=== PATIENT | female | born 1940 | race Caucasian/White ===

== ENCOUNTER 2016-07-05 12:24 | Emergency (ER) | payer MEDICARE, OTHER ==
[~2016-07-05] VITALS: Ht 157.5 cm; Wt 45.0 kg
[~2016-07-05 12:24] MED LIST: 1-ME1LIQ PO; ASPI325T PO; ATOR10TA PO; AUGM875T PO; COLA100C PO; DONE5TAB14 PO; FLUO10TA PO; IBUP-232 PO; KONS520C PO; MEMA28CA PO; OMEP40CA2 PO; SARA10TA PO; TRAZ50TA4 PO
[2016-07-05 12:35] VITALS: BP 201/84; PULSE 66; RESP 18; O2SAT 95
--- NOTE | 2016-07-05 12:49 | PD ---
HPI Chief Complaint: Altered Mental Status Time Seen by Provider: 12:45 Travel History International Travel<30 days: No Contact w/Intl Traveler<30days: No Traveled to known affect area: No History of Present Illness HPI 75-year-old female that presents to the ED for evaluation of Solomon joseph. Patient does have a history of dementia and apparently today she had an episode where she called the police because there was a stranger in her house. Apparently the stranger was her . Patient apparently got a little bit aggressive towards police that she was Carbajal acted for her own safety. She seems to be alerted to self and somewhat to place but she does appear to be somewhat demented. She cannot really give me much medical history. She denies any complaints at this time. She denies any urinary issues. She denies any head injury. No chest pain or shortness of breath. No nausea or vomiting. She has never been here before for psychiatric illness. She has no allergies to meds. She did not bring any list with medications so unclear she's taking any medications. She does appear to be somewhat altered and demented. At this time she's not aggressive. PFSH Past Medical History Hx Anticoagulant Therapy: Yes Alzheimer's Disease: Yes Arthritis: Yes Anxiety: Yes Heart Rhythm Problems: No Cardiac Catheterization: No High Cholesterol: Yes Congestive Heart Failure: No Dementia: Yes Diminished Hearing: No GERD: Yes Heparin Induced Thrombocytopen: No Hypertension: Yes Immunizations Current: No ?: Not Menopausal: Yes Past Surgical History Coronary Artery Bypass Graft: No Tonsillectomy: Yes Social History Alcohol Use: No Tobacco Use: No (smoked cigs at age 17 only) Substance Use: No Allergies-Medications (Allergen,Severity, Reaction): Coded Allergies: No Known Allergies (Unverified , 07/05/16) Patient and her state she is not allergic to aspirin. Reported Meds & Prescriptions Reported Meds & Active Scripts Active Motrin (Ibuprofen) 600 Mg Tab 600 Mg PO TID Augmentin 875 mg Tab (Amoxicillin & Pot Clavulanate 875 mg Tab) 875 Mg Tab 875 Mg PO BID 7 Days Reported Sarafem 10 mg (Fluoxetine 10 mg) 10 Mg Tab 1 Tab PO HS Trazodone Hcl (Trazodone HCl) 50 Mg Tab 50 Mg PO HS Colace (Docusate Sodium) 100 Mg Cap 100 Mg PO DAILY Atorvastatin 10 mg (Atorvastatin Calcium) 10 Mg Tab 10 Mg PO HS 30 Days Atorvastatin 10 mg (Atorvastatin Calcium) 10 Mg Tab 10 Mg PO DAILY Aspirin 325 mg (Aspirin) 325 Mg Tab 325 Mg PO DAILY Metamucil (Psyllium Hydrophilic Mucilloid) 0.52 Gm Cap 1 Cap PO TID PRN Fluoxetine (Fluoxetine HCl) 10 Mg Tab 10 Mg PO DAILY Donepezil 5 mg 5 Mg Tab 5 Mg PO DAILY Omeprazole 40 mg (Omeprazole) 40 Mg Cap 1 Cap PO DAILY Amlodipine Besylate 10 mg (Amlodipine Besylate) 10 Mg Tab 1 Tab PO DAILY Namenda XR (Memantine HCl) 28 Mg Caper 28 Mg PO DAILY Administer without regard to meals. Extended release capsules may be swallowed whole or entire contents of capsule may be sprinkled on applesauce and swallowed immediately; do not chew, crush, or divide. Review of Systems Except as stated in HPI: all other systems reviewed are Neg Physical Exam Narrative GENERAL: SKIN: Warm and dry. HEAD: Atraumatic. Normocephalic. EYES: Pupils equal and round. No scleral icterus. No injection or drainage. ENT: No nasal bleeding or discharge. Mucous membranes pink and moist. Tongue is midline. No uvula deviation. NECK: Trachea midline. No JVD. CARDIOVASCULAR: Regular rate and rhythm. No murmurs, S3, S4. RESPIRATORY: No accessory muscle use. Clear to auscultation. Breath sounds equal bilaterally. GASTROINTESTINAL: Abdomen soft, non-tender, nondistended. Hepatic and splenic margins not palpable. MUSCULOSKELETAL: Extremities without clubbing, cyanosis, or edema. No obvious deformities. Full range of motion of the upper and lower extremities bilaterally. 2+ pulses bilaterally. NEUROLOGICAL: Awake and alert and oriented x 2. No obvious cranial nerve deficits. Motor grossly within normal limits. Five out of 5 muscle strength in the arms and legs. Normal speech. PSYCHIATRIC: demented mood and affect; insight and judgment questionable. Data Data Last Documented VS Vital Signs Date Time Temp Pulse Resp B/P Pulse Ox O2 Delivery O2 Flow Rate FiO2 07/05/16 12:35 66 18 201/84 95 Orders Complete Blood Count With Diff (07/05/16 12:33) Comprehensive Metabolic Panel (07/05/16 12:33) Urinalysis - C+S If Indicated (07/05/16 12:33) Drug Screen, Random Urine (07/05/16 12:33) Alcohol (Ethanol) (07/05/16 12:33) Psych Screen (07/05/16 12:33) Ct Brain W/O Iv Contrast(Rout) (07/05/16 ) Electrocardiogram (07/05/16 12:45) Troponin I (07/05/16 12:42) Labs Laboratory Tests Test 07/05/16 07/05/16 12:42 12:47 White Blood Count 6.7 TH/MM3 Red Blood Count 4.16 MIL/MM3 Hemoglobin 13.4 GM/DL Hematocrit 38.3 % Mean Corpuscular Volume 91.9 FL Mean Corpuscular Hemoglobin 32.2 PG Mean Corpuscular Hemoglobin 35.0 % Concent Red Cell Distribution Width 14.1 % Platelet Count 332 TH/MM3 Mean Platelet Volume 6.8 FL Neutrophils (%) (Auto) 69.4 % Lymphocytes (%) (Auto) 20.6 % Monocytes (%) (Auto) 8.4 % Eosinophils (%) (Auto) 0.6 % Basophils (%) (Auto) 1.0 % Neutrophils # (Auto) 4.6 TH/MM3 Lymphocytes # (Auto) 1.4 TH/MM3 Monocytes # (Auto) 0.6 TH/MM3 Eosinophils # (Auto) 0.0 TH/MM3 Basophils # (Auto) 0.1 TH/MM3 CBC Comment DIFF FINAL Differential Comment Sodium Level 141 MEQ/L Potassium Level 3.7 MEQ/L Chloride Level 104 MEQ/L Carbon Dioxide Level 29.3 MEQ/L Anion Gap 8 MEQ/L Blood Urea Nitrogen 10 MG/DL Creatinine 0.92 MG/DL Estimat Glomerular Filtration 60 ML/MIN Rate Random Glucose 104 MG/DL Calcium Level 9.1 MG/DL Total Bilirubin 0.2 MG/DL Aspartate Amino Transf 12 U/L (AST/SGOT) Alanine Aminotransferase 18 U/L (ALT/SGPT) Alkaline Phosphatase 95 U/L Troponin I LESS THAN 0.02 NG/ML Total Protein 7.4 GM/DL Albumin 4.0 GM/DL Ethyl Alcohol Level LESS THAN 3 MG/DL Urine Color LIGHT-YELLOW Urine Turbidity CLEAR Urine pH 6.0 Urine Specific [place] 1.007 Urine Protein NEG mg/dL Urine Glucose (UA) NEG mg/dL Urine Ketones NEG mg/dL Urine Occult Blood SMALL Urine Nitrite NEG Urine Bilirubin NEG Urine Urobilinogen LESS THAN 2.0 MG/DL Urine Leukocyte Esterase NEG Urine RBC 3 /hpf Urine WBC 1 /hpf Urine Squamous Epithelial <1 /hpf Cells Urine Mucus FEW /lpf Microscopic Urinalysis Comment CULT NOT INDICATED Urine Opiates Screen NEG Urine Barbiturates Screen NEG Urine Amphetamines Screen NEG Urine Benzodiazepines Screen NEG Urine Cocaine Screen NEG Urine Cannabinoids Screen NEG MDM Medical Decision Making Medical Screen Exam Complete: Yes Emergency Medical Condition: Yes Medical Record Reviewed: Yes Interpretation(s) CBC & BMP Diagram 07/05/16 12:42 UA negative troponin negative CT of the head was negative. Differential Diagnosis Dementia versus altered mental status versus UTI versus agitation versus mood disorder versus hallucination Narrative Course 75-year-old female that presents to the ED for evaluation of Carbajal act. Patient was properly examined and was found to have signs and symptoms consistent with appears to be likely altered mental status secondary to dementia. Labs and imaging ordered. Labs and imaging showed no sign of acute disease. More specifically no sign of cause for the worsening agitation. At this time there is no sign of acute medical distress. This appears to be dementia with agitation. Patient is a Carbajal act. Patient was medically cleared. Okay to be seen by psych. Mental health screening was discussed with the patient. Diagnosis Primary Impression: Dementia Qualified Code: F03.91 - Dementia with behavioral disturbance, unspecified dementia type Garrett John Jul 05, 2016 12:49 Garrett John Jul 05, 2016 12:49
[2016-07-05 12:58] LABS: AUTOMATED NEUTROPHIL # 4.6 TH/MM3 (1.8-7.7); BASOPHIL # 0.1 TH/MM3 (0-0.2); EOSINOPHIL % 0.6 % (0.0-4.0); HEMATOCRIT 38.3 % (35.0-46.0); HEMO FLAGS DIFF FINAL; LYMPH % 20.6 % (9.0-44.0); LYMPHOCYTE # 1.4 TH/MM3 (1.0-4.8); MEAN CELL VOLUME 91.9 FL (80.0-100.0); MEAN CORPUSCULAR HEMOGLOBIN 32.2 PG (27.0-34.0); MONO % 8.4 % (0.0-8.0); NEUT % 69.4 % (16.0-70.0); PLATELET COUNT 332 TH/MM3 (150-450); RED BLOOD COUNT 4.16 MIL/MM3 (4.00-5.30); RED CELL DISTRIBUTION WIDTH 14.1 % (11.6-17.2); WHITE BLOOD COUNT 6.7 TH/MM3 (4.0-11.0)
[2016-07-05 13:11] LABS: BLOOD, URINE SMALL (NEG); COMMENT (UR) CULT NOT INDICATED; CULTURE IF INDICATED CULT NOT INDICATED; GLUCOSE,URINE NEG (NEG); KETONE, URINE NEG (NEG); MUCUS URINE FEW /lpf (OCC); NITRITE,URINE NEG (NEG); SQUAMOUS EPITHELIAL CELL URINE <1 /hpf (0-5); URINE COLOR LIGHT-YELLOW (YELLW/STRAW)
[2016-07-05 13:11] LABS: ANION GAP 8 MEQ/L (5-15); AST (GOT) 12 U/L (15-37); BICARBONATE 29.3 MEQ/L (21.0-32.0); BLOOD UREA NITROGEN 10 MG/DL (7-18); CHLORIDE 104 MEQ/L (98-107); GLOMERULAR FILTRATION RATE 60 ML/MIN (>89); POTASSIUM 3.7 MEQ/L (3.5-5.1); SODIUM (NA) 141 MEQ/L (136-145)
[2016-07-05 13:15] LABS: AMPHETAMINE, URINE NEG (NEG); BARBITURATES, URINE NEG (NEG); COCAINE, URINE NEG (NEG)
[2016-07-05 13:16] LABS: ALKALINE PHOSPHATASE 95 U/L (45-117); ALT (GPT) 18 U/L (10-53); TOTAL BILIRUBIN ADULT 0.2 MG/DL (0.2-1.0)
--- NOTE | 2016-07-05 13:22 | RADRPT ---
EXAM DATE/TIME: 07/05/2016 12:54 [facility] COMPARISON: CT BRAIN W/O CONTRAST, December 11, 2015, 19:13. INDICATIONS : Altered mental status. RADIATION DOSE: 56.35 CTDIvol (mGy) MEDICAL HISTORY : Cardiovascular disease. Cerebrovascular disease. Hypertension. SURGICAL HISTORY : Hysterectomy. Diabetes. ENCOUNTER: Initial ACUITY: 1 day PAIN SCALE: 0/10 LOCATION: cranial TECHNIQUE: Multiple contiguous axial images were obtained of the head. Using automated exposure control and adj ustment of the mA and/or kV according to patient size, radiation dose was kept as low as reasonably a chievable to obtain optimal diagnostic quality images. FINDINGS: CEREBRUM: The ventricles are normal for age. Chronic bilateral cortical atrophy and chronic stable bilateral wh ite matter changes. No evidence of midline shift, mass lesion, hemorrhage or acute infarction. No e xtra-axial fluid collections are seen. POSTERIOR FOSSA: The cerebellum and brainstem are intact. The 4th ventricle is midline. The cerebellopontine angle i s unremarkable. EXTRACRANIAL: The visualized portion of the orbits is intact. SKULL: The calvaria is intact. No evidence of skull fracture. CONCLUSION: 1. No focal or acute intracranial hemorrhage. 2. Stable CT brain compared to the prior study. Gregg Goldman MD on July 05, 2016 at 13:20 Board Certified Radiologist. This report was verified electronically.
[2016-07-05] MEDS ORDERED: LORazepam 0.5 MG TAB PO ONE (14:30)
[2016-07-05 15:00] VITALS: BP 197/84; PULSE 78; RESP 18; TEMP 99.2; O2SAT 97
[2016-07-05] MEDS ORDERED: LISINOPRIL 5 MG TAB PO ONE (15:15)
[2016-07-05] MEDS ORDERED: MIDO200C (15:48)
[2016-07-05] MEDS ORDERED: DONE5TAB7 PO (15:48)
[2016-07-05] MEDS ORDERED: OMEP10CA PO (15:48)
[2016-07-05] MEDS ORDERED: FD GUARD (15:48)
[2016-07-05] MEDS ORDERED: FLUO10CA5 PO (15:48)
[2016-07-05] MEDS ORDERED: ASPI325T33 PO (15:48)
[2016-07-05] MEDS ORDERED: ONDA1TAB16 (15:48)
[2016-07-05] MEDS ORDERED: ATOR10TA15 PO (15:48)
[2016-07-05] MEDS ORDERED: IBUP-232 PO (15:48)
[2016-07-05] MEDS ORDERED: COLA100C3 PO (15:48)
[2016-07-05] MEDS ORDERED: MEMA28CA PO (15:48)
[2016-07-05] MEDS ORDERED: AMLO10TA2 PO (15:48)
[2016-07-05 16:44] VITALS: BP 178/78; PULSE 70; RESP 16; O2SAT 99
[2016-07-05 18:44] VITALS: BP 123/58; PULSE 68; RESP 16; O2SAT 99
[2016-07-05] MEDS ORDERED: QUEtiapine FUMARATE 25 MG TAB PO PRN (21:00)
[2016-07-05 22:26] VITALS: BP 131/60; PULSE 72; RESP 18; TEMP 97.4; O2SAT 99
[2016-07-06] MEDS ORDERED: LORazepam 1 MG TAB PO ONE (01:15)
[2016-07-06 02:14] VITALS: BP 138/64; PULSE 97; RESP 17; TEMP 97.1; O2SAT 100
[2016-07-06 06:21] VITALS: BP 160/73; PULSE 98; RESP 18; O2SAT 100
[2016-07-06] MEDS ORDERED: FLUoxetine HCL 10 MG CAP PO SCH (09:00)
[2016-07-06] MEDS ORDERED: ATORVASTATIN 10 MG TAB PO SCH (09:00)
[2016-07-06] MEDS ORDERED: PANTOPRAZOLE SOD 20 MG DELAYED RELEASE TAB PO SCH (09:00)
[2016-07-06] MEDS ORDERED: MEMANTINE 28 MG PO SCH (09:00)
[2016-07-06] MEDS ORDERED: DONEPEZIL HCL 5 MG TAB PO SCH (09:00)
[2016-07-06] MEDS ORDERED: ASPIRIN EC 325 MG TABEC PO SCH (09:00)
[2016-07-06 10:03] VITALS: BP 128/62; PULSE 78; RESP 18; O2SAT 97
[2016-07-06 13:45] VITALS: BP 128/62; PULSE 78; RESP 18; O2SAT 97
--- NOTE | 2016-07-06 13:59 | PD.CONS ---
Provisional Diagnosis Admission Date 07/05/16 [place]. Dementia with behavioral disturbances FO 3.91 History of Present Illness Service Psychiatry Consult Requested By EDMD Reason for Consult Carbajal act Primary Care Physician Joshua Chin MD HPI Patient is a [age] white female comes her under Carbajal act by the [place] [employer] dated 07/05/16 at 11:55 AM stating when he has been having dementia episodes over the past week today been on a call the police because of a strange man who was inside her house the man she called about Rudy is her of 40 years. Chelita's dementia episodes have been getting worse she told her cousin Patricia that she would harm herself if Rudy did not leave Chelita told me she would end her life if Rudy did not leave Chelita seeing Dr. Patric Truong [phone] for the dementia. It appears there is an appointment with Dr. Truong tomorrow. Patient seen and screened in the ED urine toxicology negative blood alcohol level negative At the present time patient sitting quietly in her room on J pod nurse Lam present throughout session. Patient is a thin slight slender white female appears her stated age she is calm cooperative and pleasant with us though she is diffusely disoriented to place time and situation though she did know the new president was Ashley. She acknowledges somewhat obtusely her memory issues. She is somewhat vague about her memory of her though she knows his name that she does wish to go home with him. She does denies any past psychiatric contact. Denies any alcohol or drugs. Denies any suicidality homicidality voices or visions. Staff states the patient's has called various times showing his support for his is desired to have her come home today suit can take her to visit Dr. Truong tomorrow. At the present time I feel patient does not meet acre criteria will lift Carbajal act. She does show signs of dementia. She does have an appointment tomorrow with a psychiatrist to follow up with this. It appears does have appropriate support at home with her . Thus I will lift the Carbajal act allow her to be discharged her . No Rx by me. To follow-up tomorrow with Dr. Truong Review of Systems Except as stated in HPI: all other systems reviewed are Neg Past Family Social History Coded Allergies: No Known Allergies (Unverified , 07/05/16) Patient and her state she is not allergic to aspirin. Past Medical History Patient medically cleared ED Reported Medications Docusate Sodium (Colace)100 Mg [id number] Mg PO DAILY #60 CAP Ref 0 07/05/16 Fluoxetine 10 Mg Cap10 Mg PO DAILY #30 CAP Ref 0 07/05/16 [Fd Guard] No Conflict Check Hs 07/05/[address] (Aspirin EC)325 Mg [id number] Mg PO DAILY Ref 0 07/05/16 Ondansetron 4 Mg Tab Bid 07/05/16 Ibuprofen 600 Mg [id number] Mg PO BID Ref 0 07/05/16 Ibuprofen (Midol)200 Mg Cap1 Tab BID 07/05/16 Omeprazole 10 Mg Cap10 Mg PO BID #30 CAP Ref 0 07/05/16 Atorvastatin 10 Mg Tab10 Mg PO DAILY #30 TAB Ref 0 07/05/16 Amlodipine 10 Mg Tab10 Mg PO BID #30 TAB Ref 0 07/05/16 Memantine Er (Namenda Xr)28 Mg Caper28 Mg PO DAILY #30 CAP Ref 0 07/05/16 Donepezil 5 Mg Tab5 Mg PO DAILY #30 TAB Ref 0 07/05/16 Discontinued Reported Medications Fluoxetine 10 mg (Sarafem 10 mg)10 Mg Tab1 Tab PO HS 03/27/16 Trazodone Hcl 50 Mg Tab50 Mg PO HS 03/27/16 Docusate Sodium (Colace)100 Mg Gng130 Mg PO DAILY 12/11/15 Atorvastatin 10 mg 10 Mg Tab10 Mg PO HS 30 Days 12/11/15 Atorvastatin 10 mg 10 Mg Tab10 Mg PO DAILY 12/11/15 Aspirin (Aspirin 325 mg)325 Mg Uji412 Mg PO DAILY 12/11/15 Psyllium (Metamucil)0.52 Gm Cap1 Cap PO TID PRN (CONSTIPATION) 12/11/15 Fluoxetine 10 Mg Tab10 Mg PO DAILY 12/11/15 Donepezil 5 mg 5 Mg Tab5 Mg PO DAILY 10/16/15 [id number] M1 40 Mg Cap1 Cap PO DAILY 10/16/15 1-Methyl 2-Pyrrolidone (Bulk) (1-Methyl 2-Pyrrolidinone)10 Mg Tab1 Tab PO DAILY 01/11/15 Memantine HCl (Namenda XR)28 Mg Caper28 Mg PO DAILY Administer without regard to meals. Extended release capsules may be swallowed whole or entire contents of capsule may be sprinkled on applesauce and swallowed immediately; do not chew, crush, or divide. 01/11/15 Discontinued Scripts Ibuprofen (Motrin)600 Mg Utt067 Mg PO TID #30 TAB Prov:Juan C Gil MD 03/27/16 [id number] M1 875 Mg Usr549 Mg PO BID 7 Days Prov:Juan C Gil MD 03/27/16 Current Medications Medications (Trade) Dose Ordered Sig/Theodore Route Start Time Stop Time Status Last Admin (Norvasc) 10 mg DAILY PO 07/06/16 09:00 07/06/16 09:05 (Ecotrin Ec) 325 mg DAILY PO 07/06/16 09:00 07/06/16 09:05 (Lipitor) 10 mg DAILY PO 07/06/16 09:00 07/06/16 09:05 (Aricept) 5 mg DAILY PO 07/06/16 09:00 07/06/16 09:05 (PROzac) 10 mg DAILY PO 07/06/16 09:00 07/06/16 09:05 (Protonix) 20 mg DAILY PO 07/06/16 09:00 07/06/16 09:05 Patient Own Medication PT OWN MED: (Memant... DAILY PO 07/06/16 09:00 Hold (SEROquel) 25 mg BID PRN PO 07/05/16 21:00 07/05/16 20:49 Family History Patient lives with of 40 years, states they have no children. Social History Patient was the denies alcohol or drug use Patient's Strengths (min. 2) Patient verbal able [facility] has supportive family Physical Exam Patient seen screened in ED medically cleared exam reviewed and agreed with Vital Signs Vital Signs Date Time Temp Pulse Resp B/P Pulse Ox O2 Delivery O2 Flow Rate FiO2 07/06/16 10:03 78 18 128/62 97 Room Air 07/06/16 02:14 97.1 Mental Status Examination Allergic history disoriented thin slight slender white female clean and neat with fair eye contact cooperative Appearance Clean and neat Speech: Circumstantial, Tangential Orientation: Person Memory: Impaired (describe) Thought Process: Linear Thought Content: Unremarkable Hallucination Type: None (denies voices or visions) Attention and Concentration: Other (poor) Suicidal Ideation: No Previous Suicide Attempts: No Homicidal Ideation: No Previous Homicide Attempts: No Insight: Poor Judgement: Poor Affect: Other (good range and intensity) Mood: Euthymic (is somewhat restricted) Motor Activity: Normal gait Assessment & Plan Problem List: (1) Dementia with behavioral disturbance ICD Code: F03.91 Assessment & Plan Estimated LOS: days patient does not meet criteria under the Carbajal act. Will lift Carbajal act. Patient to be discharged her . To follow-up with Dr. Truong tomorrow. No Rx by me Discharge Planning See above Request HC Surrog/Guard Advoc?: No Miah Perales MD Jul 06, 2016 13:58
== END 2016-07-06 15:07 | disposition home or self-care (01) ==
LOC: NEPC 12:24 → NEPJ 07-06 15:07
DX: F03.91 Unspecified dementia, unspecified severity, with behavioral disturbance (principal); G30.9 Alzheimer's disease, unspecified; I10 Essential (primary) hypertension; E78.00 Pure hypercholesterolemia, unspecified
CPT/HCPCS: 70450; 80053; 80307; 80320; 81001; 84484; 85025

== ENCOUNTER 2016-10-08 21:46 | Inpatient (IN) | payer MEDICARE ==
[~2016-10-08] VITALS: Ht 162.6 cm; Wt 51.4 kg
[~2016-10-08 21:46] MED LIST changes: -1-ME1LIQ PO; +AMLO10TA2 PO; -ASPI325T PO; +ASPI325T33 PO; -ATOR10TA PO; +ATOR10TA15 PO; -AUGM875T PO; -COLA100C PO; +COLA100C3 PO; -DONE5TAB14 PO; +DONE5TAB7 PO; +FD GUARD; +FLUO10CA5 PO; -FLUO10TA PO; -KONS520C PO; +MIDO200C; +OMEP10CA PO; -OMEP40CA2 PO; +ONDA1TAB16; -SARA10TA PO; -TRAZ50TA4 PO
[2016-10-08 21:57] VITALS: BP 170/60; PULSE 78; RESP 18; TEMP 98.6; O2SAT 98
--- NOTE | 2016-10-08 22:04 | PD ---
HPI Chief Complaint: Altered Mental Status Time Seen by Provider: 21:51 Travel History International Travel<30 days: No Contact w/Intl Traveler<30days: No Traveled to known affect area: No History of Present Illness HPI This 76-year-old female is here because of dementia. She has a history of dementia. She generally lives at home with her . Her apparently drives a car and generally is in better shape than his . Over the last month however her has had a decline is being admitted to the hospital with some altered mental status and pneumonia. He was referred to the emergency department from his doctor's office. His has come with him. The 2 of them live alone together. They have children in other states. The charge nurse in the hospital has called DCF but they are unable to place the patient at this time. The patient has been in the emergency department with her . She has been quite confused area and she does not always recognize her . She has been wandering around and does not live with request that she stay in the room. She has been urinating a lot. She does not answer questions appropriately. She denies pain. It is not clear if She is taking any medication. SHe denies any pain PFSH Past Medical History Hx Anticoagulant Therapy: Yes Alzheimer's Disease: Yes Arthritis: Yes Anxiety: Yes Heart Rhythm Problems: No Cardiac Catheterization: No High Cholesterol: Yes Congestive Heart Failure: No Dementia: Yes Diminished Hearing: No GERD: Yes Heparin Induced Thrombocytopen: No Hypertension: Yes Immunizations Current: No Menopausal: Yes Past Surgical History Coronary Artery Bypass Graft: No Tonsillectomy: Yes Social History Alcohol Use: No Tobacco Use: No (smoked cigs at age 17 only) Substance Use: No Allergies-Medications (Allergen,Severity, Reaction): Coded Allergies: No Known Allergies (Unverified , 10/08/16) Patient and her state she is not allergic to aspirin. Reported Meds & Prescriptions Reported Meds & Active Scripts Active Reported Colace (Docusate Sodium) 100 Mg Cap 100 Mg PO DAILY Fluoxetine (Fluoxetine HCl) 10 Mg Cap 10 Mg PO DAILY [Fd Guard] HS Aspirin EC (Aspirin) 325 Mg Tabdr 325 Mg PO DAILY Ondansetron (Ondansetron HCl) 4 Mg Tab BID Ibuprofen 600 Mg Tab 600 Mg PO BID Midol (Ibuprofen) 200 Mg Cap 1 Tab BID Omeprazole 10 Mg Cap 10 Mg PO BID Atorvastatin (Atorvastatin Calcium) 10 Mg Tab 10 Mg PO DAILY Amlodipine (Amlodipine Besylate) 10 Mg Tab 10 Mg PO BID Namenda Xr (Memantine) 28 Mg Caper 28 Mg PO DAILY Donepezil 5 Mg Tab 5 Mg PO DAILY Review of Systems ROS Limitations: Clinical Condition, Altered Mental Status, Poor Historian Physical Exam Narrative GENERAL: Well-developed female SKIN: Focused skin assessment warm/dry. HEAD: Atraumatic. Normocephalic. EYES: Pupils equal and round. No scleral icterus. No injection or drainage. ENT: No nasal bleeding or discharge. Mucous membranes pink and moist. NECK: Trachea midline. No JVD. CARDIOVASCULAR: Regular rate and rhythm. No murmur appreciated. RESPIRATORY: No accessory muscle use. Clear to auscultation. Breath sounds equal bilaterally. GASTROINTESTINAL: Abdomen soft, non-tender, nondistended. Hepatic and splenic margins not palpable. MUSCULOSKELETAL: No obvious deformities. No clubbing. No cyanosis. No edema. NEUROLOGICAL: Awake and alert. No obvious cranial nerve deficits. Motor grossly within normal limits. She is quite confused. She is not oriented to time or place. She does not always recognize her GENERAL well-developed female. She is cooperative but quite confused. She has very poor short-term memory SKIN: Focused skin assessment warm/dry. HEAD: Atraumatic. Normocephalic. EYES: Pupils equal and round. No scleral icterus. No injection or drainage. ENT: No nasal bleeding or discharge. Mucous membranes pink and moist. NECK: Trachea midline. No JVD. CARDIOVASCULAR: Regular rate and rhythm. No murmur appreciated. RESPIRATORY: No accessory muscle use. Clear to auscultation. Breath sounds equal bilaterally. GASTROINTESTINAL: Abdomen soft, non-tender, nondistended. Hepatic and splenic margins not palpable. MUSCULOSKELETAL: No obvious deformities. No clubbing. No cyanosis. No edema. NEUROLOGICAL: Awake and alert. No obvious cranial nerve deficits. Motor grossly within normal limits. Normal speech. She is not oriented to time or place. She does not always denies her Data Data Last Documented VS Vital Signs Date Time Temp Pulse Resp B/P Pulse Ox O2 Delivery O2 Flow Rate FiO2 10/08/16 21:57 98.6 78 18 170/60 98 Orders Complete Blood Count With Diff (10/08/16 21:55) Comprehensive Metabolic Panel (10/08/16 21:55) Urinalysis - C+S If Indicated (10/08/16 21:55) Magnesium (Mg) (10/08/16 21:55) Thyroid Stimulating Hormone (10/08/16 21:55) Ct Brain W/O Iv Contrast(Rout) (10/08/16 21:55) Electrocardiogram (10/08/16 23:25) Potassium Chloride (Kcl) (10/08/16 23:30) Labs Laboratory Tests Test 10/08/16 22:40 White Blood Count 7.7 TH/MM3 Red Blood Count 4.34 MIL/MM3 Hemoglobin 13.1 GM/DL Hematocrit 38.6 % Mean Corpuscular Volume 88.8 FL Mean Corpuscular Hemoglobin 30.2 PG Mean Corpuscular Hemoglobin 34.0 % Concent Red Cell Distribution Width 12.3 % Platelet Count 324 TH/MM3 Mean Platelet Volume 7.0 FL Neutrophils (%) (Auto) 70.3 % Lymphocytes (%) (Auto) 18.6 % Monocytes (%) (Auto) 9.6 % Eosinophils (%) (Auto) 0.8 % Basophils (%) (Auto) 0.7 % Neutrophils # (Auto) 5.4 TH/MM3 Lymphocytes # (Auto) 1.4 TH/MM3 Monocytes # (Auto) 0.7 TH/MM3 Eosinophils # (Auto) 0.1 TH/MM3 Basophils # (Auto) 0.1 TH/MM3 CBC Comment DIFF FINAL Differential Comment Urine Color STRAW Urine Turbidity CLEAR Urine pH 6.0 Urine Specific [place] 1.002 Urine Protein NEG mg/dL Urine Glucose (UA) NEG mg/dL Urine Ketones NEG mg/dL Urine Occult Blood SMALL Urine Nitrite NEG Urine Bilirubin NEG Urine Leukocyte Esterase NEG Urine RBC 0-3 /hpf Urine WBC 0-2 /hpf Urine Squamous Epithelial 0-5 /hpf Cells Urine Bacteria NONE /hpf Microscopic Urinalysis Comment CULT NOT INDICATED Sodium Level 139 MEQ/L Potassium Level 2.6 MEQ/L Chloride Level 94 MEQ/L Carbon Dioxide Level 38.3 MEQ/L Anion Gap 7 MEQ/L Blood Urea Nitrogen 15 MG/DL Creatinine 0.79 MG/DL Estimat Glomerular Filtration 71 ML/MIN Rate Random Glucose 144 MG/DL Calcium Level 9.4 MG/DL Magnesium Level 2.5 MG/DL Total Bilirubin 0.4 MG/DL Aspartate Amino Transf 18 U/L (AST/SGOT) Alanine Aminotransferase 25 U/L (ALT/SGPT) Alkaline Phosphatase 92 U/L Total Protein 7.1 GM/DL Albumin 3.8 GM/DL Thyroid Stimulating Hormone 0.208 uIU/ML 3rd Gen [facility] Medical Decision Making Medical Screen Exam Complete: Yes Emergency Medical Condition: Yes Medical Record Reviewed: Yes Differential Diagnosis Differential includes dementia, UTI, electrolyte imbalance Narrative Course Her potassium is 2.6. Urine is negative for infection. CT scan shows age- related atrophy. Patient will need to be admitted. DCF has been called earlier in the day but was unable to find a place for the patient. He has no vertigo at this point. She was staying here with her but has been wandering needs closer supervision. EKG shows sinus rhythm with nonspecific ST- T wave changes Diagnosis Primary Impression: Dementia with behavioral disturbance Additional Impression: Hypokalemia Admitting Information Admitting Physician Requests: Observation Carter Moreno MD October 08, 2016 22:04
--- NOTE | 2016-10-08 22:48 | RADHPO ---
EXAM DATE/TIME: 10/08/2016 22:20 [facility] COMPARISON: CT BRAIN W/O CONTRAST, July 05, 2016, 12:54. INDICATIONS : Dementia with recent decline in mental status. RADIATION DOSE: 61.77 CTDIvol (mGy) MEDICAL HISTORY : Alzheimer's Hypertension. Diabetes. SURGICAL HISTORY : None. ENCOUNTER: Initial ACUITY: 1 day PAIN SCALE: 0/10 LOCATION: cranial TECHNIQUE: Multiple contiguous axial images were obtained of the head. Using automated exposure control and adj ustment of the mA and/or kV according to patient size, radiation dose was kept as low as reasonably a chievable to obtain optimal diagnostic quality images. FINDINGS: CEREBRUM: The ventricles and cortical sulci are mildly widened. There is low density in the cerebral white lupe er especially in the frontal regions. No evidence of midline shift, mass lesion, hemorrhage or acute infarction. No extra-axial fluid collections are seen. POSTERIOR FOSSA: The cerebellum and brainstem are intact. The 4th ventricle is midline. The cerebellopontine angle i s unremarkable. EXTRACRANIAL: The visualized portion of the orbits is intact. SKULL: The calvaria is intact. No evidence of skull fracture. CONCLUSION: 1. No acute abnormality seen. 2. Age-related atrophy. 3. Suspected small vessel ischemic change in the white matter. Miah Herndon MD on October 08, 2016 at 22:44 Board Certified Radiologist. This report was verified electronically.
[2016-10-08 22:54] LABS: AUTOMATED NEUTROPHIL # 5.4 TH/MM3 (1.8-7.7); BASOPHIL # 0.1 TH/MM3 (0-0.2); BASOPHIL % 0.7 % (0.0-2.0); EOSINOPHIL # 0.1 TH/MM3 (0-0.4); EOSINOPHIL % 0.8 % (0.0-4.0); HEMATOCRIT 38.6 % (35.0-46.0); HEMO FLAGS DIFF FINAL; LYMPH % 18.6 % (9.0-44.0); LYMPHOCYTE # 1.4 TH/MM3 (1.0-4.8); MEAN CELL VOLUME 88.8 FL (80.0-100.0); MEAN CORPUSCULAR HEMOGLOBIN 30.2 PG (27.0-34.0); MONO % 9.6 % (0.0-8.0); NEUT % 70.3 % (16.0-70.0); PLATELET COUNT 324 TH/MM3 (150-450); RED BLOOD COUNT 4.34 MIL/MM3 (4.00-5.30); RED CELL DISTRIBUTION WIDTH 12.3 % (11.6-17.2); WHITE BLOOD COUNT 7.7 TH/MM3 (4.0-11.0)
[2016-10-08 22:55] LABS: BLOOD, URINE SMALL (NEG); GLUCOSE,URINE NEG (NEG); KETONE, URINE NEG (NEG); NITRITE,URINE NEG (NEG)
[2016-10-08 23:03] LABS: URINE COLOR STRAW (YELLW/STRAW)
[2016-10-08 23:04] LABS: COMMENT (UR) CULT NOT INDICATED; CULTURE IF INDICATED CULT NOT INDICATED; RBC, URINE 0-3 /hpf (0-3); SQUAMOUS EPITHELIAL CELL URINE 0-5 /hpf (0-5); WBC, URINE 0-2 /hpf (0-5)
[2016-10-08 23:18] LABS: ALKALINE PHOSPHATASE 92 U/L (45-117); ALT (GPT) 25 U/L (10-53); ANION GAP 7 MEQ/L (5-15); AST (GOT) 18 U/L (15-37); BICARBONATE 38.3 MEQ/L (21.0-32.0); BLOOD UREA NITROGEN 15 MG/DL (7-18); CHLORIDE 94 MEQ/L (98-107); GLOMERULAR FILTRATION RATE 71 ML/MIN (>89); MAGNESIUM 2.5 MG/DL (1.5-2.5); SODIUM (NA) 139 MEQ/L (136-145); TOTAL BILIRUBIN ADULT 0.4 MG/DL (0.2-1.0)
[2016-10-08 23:20] LABS: POTASSIUM 2.6 MEQ/L (3.5-5.1)
[2016-10-08] MEDS ORDERED: POTASSIUM CHLORIDE 20 MEQ CONTROLLED RELEASE TAB PO ONE (23:30)
[2016-10-08] MEDS ORDERED: PRED20 PO ×2 (23:38)
[2016-10-09 00:18] VITALS: BP 147/60; PULSE 66; RESP 18; O2SAT 96
[2016-10-09 01:30] VITALS: BP 145/68; PULSE 74; RESP 18; TEMP 97.1; O2SAT 98
[2016-10-09] MEDS ORDERED: NALOXONE HCL 0.4 MG/ML AMP IV PRN (01:45)
[2016-10-09] MEDS ORDERED: ACETAMINOPHEN 325 MG TAB PO PRN (01:45)
[2016-10-09] MEDS ORDERED: SODIUM CHLORIDE 0.9% FLUSH 10 ML FLUSH IV FLUSH PRN (01:45)
[2016-10-09] MEDS ORDERED: POTASSIUM CHLORIDE 20 MEQ CONTROLLED RELEASE TAB PO ONE (01:45)
[2016-10-09] MEDS ORDERED: ONDANSETRON HCL 4 MG/2 ML VIAL IVP PRN (01:45)
[2016-10-09] MEDS ORDERED: SENNOSIDES 8.6 MG TAB PO PRN (01:45)
[2016-10-09] MEDS: SODIUM CHLORIDE 0.9% FLUSH 10 ML FLUSH IV FLUSH SCH ×2 (02:17→09:46)
[2016-10-09] MEDS: LORazepam 2 MG/ML VIAL IV PUSH PRN ×2 (02:55→09:47)
[2016-10-09 08:00] VITALS: BP 134/57; PULSE 69; RESP 17; TEMP 97.8; O2SAT 98
[2016-10-09] MEDS ORDERED: PT OWN: NAMENDA XR 28MG PO SCH (09:00)
[2016-10-09] MEDS: PANTOPRAZOLE SOD 20 MG DELAYED RELEASE TAB PO SCH (09:45)
[2016-10-09] MEDS: DOCUSATE SODIUM 100 MG CAP PO SCH (09:45)
[2016-10-09] MEDS: FLUoxetine HCL 10 MG CAP PO SCH (09:45)
[2016-10-09] MEDS: ASPIRIN EC 325 MG TABEC PO SCH (09:46)
[2016-10-09] MEDS: IBUPROFEN 600 MG TAB PO SCH ×2 (09:46→20:26)
[2016-10-09] MEDS: ATORVASTATIN 10 MG TAB PO SCH (09:46)
[2016-10-09] MEDS: HEPARIN SODIUM - SQ 10,000 UNITS/ML VIAL SQ SCH ×2 (09:46→20:25)
[2016-10-09] MEDS: DONEPEZIL HCL 5 MG TAB PO SCH (09:46)
--- NOTE | 2016-10-09 09:57 | MH ---
cc: KIP LOUISE MD DATE OF ADMISSION: 10/08/2016 CHIEF COMPLAINT Altered mental status. HISTORY OF PRESENT ILLNESS This is a 76-year female with medical history significant for dementia, arthritis, anxiety, hyperlipidemia, gastroesophageal reflux disease, She lives at home with , apparently and drives car and generally is in better shape then his . Over the last month however her has had a decline in being admitted to the hospital with some altered mental status and pneumonia and he was referred to emergency department from [facility] with his to come to see two of them living alone and had children in other states and charge nurse in the hospital called us here as they were unable to place the patient at this time. The patient has been in the emergency department with and she has been quite confused and does not always recognize her . She has been wandering around and does not live with request that she stay in the room. She has been urinating a lot. She does not answer questions appropriately. She denies any pain. When I asked the patient where she is, other than that nothing significant she is totally confused and demented. PAST MEDICAL HISTORY: As dictated above. PAST SURGICAL HISTORY: Significant for tonsillectomy. SOCIAL HISTORY Does not smoke, drink or take any drugs. Lives at home with both are confused now. ALLERGIES NO KNOWN DRUG ALLERGIES. FAMILY HISTORY Unable to obtain. MEDICATIONS: 1. Colace 100 mg p.o. daily. 2. 10 mg p.o. daily 3. Aspirin 325 mg p.o. daily 4. Zofran 4 mg p.o. b.i.d. 5. Ibuprofen 600mg p.o. b.i.d. 6. Omeprazole 10 mg twice a day 7. Lipitor 10 mg p.o. daily. 8. Amlodipine 10 mg b.i.d. 9. Namenda XR 28 mg p.o. daily 10. Donepezil 5 mg p.o. daily. REVIEW OF SYSTEMS All review of systems are unable to obtain because the patient has dementia and altered mental status. PHYSICAL EXAMINATION IN GENERAL: This is an 76-year female sitting on the bed not in acute distress. VITAL SIGNS: Temperature 97.8, heart rate 69, respirations 17, blood pressure 134/57. Oxygen saturation 98% room air. HEAD, EYES, EARS, NOSE, AND THROAT: Normocephalic, atraumatic. Extraocular muscles intact, pupils equal, round, reactive to light and accommodation. Oral mucosa moist. NECK: The neck is supple. No visible thyromegaly or mass. Trachea central. CARDIOVASCULAR SYSTEM: Regular rate and rhythm. LUNGS: Respirations clear to auscultation bilaterally. ABDOMEN: Soft, nontender. Bowel sounds. EXTREMITIES: No cyanosis, No clubbing, range of motion of all extremities. NEUROLOGIC: Awake and alert but confused and demented moving all extremities. Speech is normal. SKIN: Warm and dry. PSYCHIATRIC: The patient is cooperative. LABORATORY DATA Include CBC is totally unremarkable. Neutrophil percentage 70.3 high, mono is 9.6 high. BMP totally unremarkable except for potassium 2.6 low, chloride 94 low, carbon dioxide 38.3 high. GFR 71, glucose 144 high. TSH is 0.208. Urine; occult blood small 0220, WBC 0 TO 3, red blood cells. Culture not indicated. RADIOLOGIC: CT brain done shows no acute abnormality, age related atrophy, suspected small-vessel ischemic changes in the white matter EKG done shows sinus rhythm with rate of [address]-T wave changes. ASSESSMENT/PLAN 1. This is 76-year-old female who came to the ER diagnosed with altered mental status with dementia. A CT brain does not show . The patient needs placement, [facility] Children [facility] Families is involved. A case advocate is also working on it. 2. Hypokalemia on replaced potassium and checked magnesium level 4. 3. History of hyperlipidemia. Continue home medications. 4. History of anxiety. Continue home medication. 5. History of arthritis. Continue home medications. 6. History of dementia. Continue home medication. 7. Deep venous thrombosis prophylaxis heparin 5000 units subcutaneous twice a day. 8. GI prophylaxis Protonix 40 mg p.o. daily. 9. We are going to manage the patient on daily basis and make recommendation daily basis. Kip Louise MD EA/dennis /8:42 AM /9:45 AM
[2016-10-09 12:00] VITALS: BP 127/65; PULSE 72; RESP 18; TEMP 97.6; O2SAT 96
[2016-10-09] MEDS: MEMANTINE HCL 10 MG TAB PO SCH ×2 (12:35→20:25)
--- NOTE | 2016-10-09 15:29 | EKG ---
Date Performed: 10/08/2016 Time Performed: 23:28:44 PTAGE: 76 years EKG: Sinus rhythm Extensive ST-T changes are nonspecific Borderline ECG PREVIOUS TRACING : 12/11/2015 07.04 DOCTOR: Ayaan Posada Interpretating Date/Time 10/09/2016 15:25:50
[2016-10-09 15:49] LABS: BICARBONATE 35.1 MEQ/L (21.0-32.0)
[2016-10-09 16:00] VITALS: BP 121/75; PULSE 66; RESP 18; TEMP 97.8; O2SAT 96
[2016-10-09] MEDS ORDERED: HALOPERIDOL LACTATE 5 MG/ML AMP IM PRN (16:30)
[2016-10-09] MEDS: LORazepam 0.5 MG TAB PO PRN ×2 (16:43→20:25)
[2016-10-09 20:02] VITALS: BP 135/57; PULSE 77; RESP 18; TEMP 97.5; O2SAT 100
[2016-10-10 00:23] VITALS: BP 119/63; PULSE 66; RESP 16; TEMP 96.5; O2SAT 93
[2016-10-10] MEDS: PANTOPRAZOLE SOD 20 MG DELAYED RELEASE TAB PO SCH (07:31)
[2016-10-10] MEDS: ASPIRIN EC 325 MG TABEC PO SCH (07:31)
[2016-10-10] MEDS: FLUoxetine HCL 10 MG CAP PO SCH (07:32)
[2016-10-10] MEDS: LORazepam 0.5 MG TAB PO PRN (07:32)
[2016-10-10] MEDS: DONEPEZIL HCL 5 MG TAB PO SCH (07:32)
[2016-10-10] MEDS: ATORVASTATIN 10 MG TAB PO SCH (07:32)
[2016-10-10] MEDS: IBUPROFEN 600 MG TAB PO SCH ×2 (07:32→23:06)
[2016-10-10] MEDS: MEMANTINE HCL 10 MG TAB PO SCH ×2 (07:32→23:06)
[2016-10-10] MEDS: DOCUSATE SODIUM 100 MG CAP PO SCH (07:32)
[2016-10-10] MEDS: SODIUM CHLORIDE 0.9% FLUSH 10 ML FLUSH IV FLUSH SCH ×2 (07:33→19:52)
[2016-10-10] MEDS: HEPARIN SODIUM - SQ 10,000 UNITS/ML VIAL SQ SCH ×2 (07:33→23:06)
[2016-10-10 07:43] LABS: AUTOMATED NEUTROPHIL # 3.5 TH/MM3 (1.8-7.7); BASOPHIL # 0.1 TH/MM3 (0-0.2); BASOPHIL % 2.1 % (0.0-2.0); EOSINOPHIL # 0.2 TH/MM3 (0-0.4); EOSINOPHIL % 2.8 % (0.0-4.0); HEMATOCRIT 39.9 % (35.0-46.0); LYMPH % 25.9 % (9.0-44.0); LYMPHOCYTE # 1.4 TH/MM3 (1.0-4.8); MEAN CELL VOLUME 91.2 FL (80.0-100.0); MEAN CORPUSCULAR HEMOGLOBIN 30.5 PG (27.0-34.0); MEAN CORPUSCULAR HGB CONC 33.5 % (32.0-36.0); MONO % 7.6 % (0.0-8.0); NEUT % 61.6 % (16.0-70.0); PLATELET COUNT 294 TH/MM3 (150-450); RED BLOOD COUNT 4.38 MIL/MM3 (4.00-5.30); RED CELL DISTRIBUTION WIDTH 12.9 % (11.6-17.2); WHITE BLOOD COUNT 5.6 TH/MM3 (4.0-11.0)
[2016-10-10 07:50] LABS: CHLORIDE 103 MEQ/L (98-107); POTASSIUM 3.2 MEQ/L (3.5-5.1); SODIUM (NA) 144 MEQ/L (136-145)
[2016-10-10 07:54] LABS: ANION GAP 9 MEQ/L (5-15); BLOOD UREA NITROGEN 13 MG/DL (7-18); HEMO FLAGS DIFF FINAL
[2016-10-10 07:57] LABS: ALT (GPT) 20 U/L (10-53); AST (GOT) 20 U/L (15-37); GLOMERULAR FILTRATION RATE 101 ML/MIN (>89)
[2016-10-10 07:58] VITALS: BP 136/59; PULSE 55; RESP 20; TEMP 97.4; O2SAT 95
[2016-10-10 07:59] LABS: TOTAL BILIRUBIN ADULT 0.4 MG/DL (0.2-1.0)
[2016-10-10 08:00] VITALS: BP 147/64; PULSE 90; RESP 20; TEMP 97.5; O2SAT 90
[2016-10-10 08:00] LABS: ALKALINE PHOSPHATASE 88 U/L (45-117)
--- NOTE | 2016-10-10 09:19 | HHI.PR ---
Subjective History of Present Illness Patient confused and agitated on Haldol and Ativan discussed with STACEY Platt Low potassium will replace and monitor. Review of Systems Constitutional Constitutional Remarks Review of system Unable to obtain because of dementia. Vitals/Results Intake & Output 10/09/16 10/09/16 10/10/16 15:00 23:00 07:00 Intake Total 240 ml 0 ml 0 ml Balance 240 ml 0 ml 0 ml Intake Oral 240 ml IV Total 0 ml 0 ml # Voids 2 2 Vital Signs Vital Signs Date Time Temp Pulse Resp B/P Pulse Ox O2 Delivery O2 Flow Rate FiO2 10/10/16 08:00 97.5 90 20 147/64 90 10/10/16 05:32 10/10/16 00:23 96.5 66 16 119/63 93 10/09/16 20:02 97.5 77 18 135/57 100 10/09/16 16:00 97.8 66 18 121/75 96 10/09/16 12:00 97.6 72 18 127/65 96 CBC/BMP: 10/10/16 0715 10/10/16 0715 Lab Results Laboratory Tests Test 10/09/16 10/10/16 10:30 07:15 Sodium Level 144 MEQ/L 144 MEQ/L Potassium Level 3.0 MEQ/L 3.2 MEQ/L Chloride Level 100 MEQ/L 103 MEQ/L Carbon Dioxide Level 35.1 MEQ/L 32.0 MEQ/L Anion Gap 9 MEQ/L 9 MEQ/L Blood Urea Nitrogen 11 MG/DL 13 MG/DL Creatinine 0.75 MG/DL 0.58 MG/DL Estimat Glomerular Filtration 75 ML/MIN 101 ML/MIN Rate Random Glucose 141 MG/DL 105 MG/DL Calcium Level 8.7 MG/DL 8.9 MG/DL Ammonia 14 MCMOL/L White Blood Count 5.6 TH/MM3 Red Blood Count 4.38 MIL/MM3 Hemoglobin 13.3 GM/DL Hematocrit 39.9 % Mean Corpuscular Volume 91.2 FL Mean Corpuscular Hemoglobin 30.5 PG Mean Corpuscular Hemoglobin 33.5 % Concent Red Cell Distribution Width 12.9 % Platelet Count 294 TH/MM3 Mean Platelet Volume 7.9 FL Neutrophils (%) (Auto) 61.6 % Lymphocytes (%) (Auto) 25.9 % Monocytes (%) (Auto) 7.6 % Eosinophils (%) (Auto) 2.8 % Basophils (%) (Auto) 2.1 % Neutrophils # (Auto) 3.5 TH/MM3 Lymphocytes # (Auto) 1.4 TH/MM3 Monocytes # (Auto) 0.4 TH/MM3 Eosinophils # (Auto) 0.2 TH/MM3 Basophils # (Auto) 0.1 TH/MM3 CBC Comment DIFF FINAL Differential Comment Total Bilirubin 0.4 MG/DL Aspartate Amino Transf 20 U/L (AST/SGOT) Alanine Aminotransferase 20 U/L (ALT/SGPT) Alkaline Phosphatase 88 U/L Total Protein 6.7 GM/DL Albumin 3.5 GM/DL Physical Exam General General Appearance: No Acute Distress, Comfortable Eyes Eye Exam: Pupils Equal, Pupils Reactive, Sclera White, Extraocular Movement Intact Throat Throat Exam: Oral Mucosa [place] & Moist, Oral Pharynx Normal Neck Neck Exam: Neck Supple, Trachea Midline Pulmonary Resp Exam: Clear Bilaterally, Breath Sounds Equal Cardiology CV Exam: Regular, Normal Sinus Rhythm Gastrointestinal/Abdomen GI Exam: Soft, Non-Tender, Bowel Sounds Present Musculoskeletal MS Exam: Normal Gait, Normal Tone Integumentary Skin Exam: Clear, Warm, Dry, Intact Extremeties Extremities Exam: No Edema Neurologic Neuro Exam: Alert, Awake Neuro Remarks confused and demented. VTE Prophylaxis VTE Prophylaxis Meds: Heparin PUD Prophylasis PUD Prophylaxis: Protonix Assessment/Plan Assessment/Plan ASSESSMENT/PLAN 1. This is 76-year-old female who came to the ER diagnosed with altered mental status with dementia. A CT brain does not show any thing acute. The patient needs placement, [facility] Children [facility] Families is involved. A rn case manager is also working on it. 2. Hypokalemia on replaced potassium and checked magnesium level 3. History of hyperlipidemia. Continue home medications. 4. History of anxiety. Continue home medication. 5. History of arthritis. Continue home medications. 6. History of dementia. Continue home medication. 7. Deep venous thrombosis prophylaxis heparin 5000 units subcutaneous twice a day. 8. GI prophylaxis Protonix 40 mg p.o. daily. 9. Agitation on Haldol and Ativan. We are going to manage the patient on daily basis and make recommendation daily basis. Kip Verduzco MD October 10, 2016 09:19
[2016-10-10] MEDS ORDERED: POTASSIUM CHLORIDE 20 MEQ CONTROLLED RELEASE TAB PO ONE (09:30)
[2016-10-10 12:00] VITALS: BP 125/61; PULSE 85; RESP 20; TEMP 99; O2SAT 92
[2016-10-10] MEDS ORDERED: LORazepam 1 MG TAB PO PRN (13:15)
[2016-10-10] MEDS ORDERED: POTASSIUM CHLORIDE 10 MEQ CONTROLLED RELEASE TAB PO ONE (15:30)
[2016-10-10 16:00] VITALS: BP 121/59; PULSE 73; RESP 20; TEMP 98; O2SAT 90
[2016-10-10 20:33] VITALS: BP 141/71; PULSE 96; RESP 12; TEMP 98; O2SAT 92
[2016-10-11 00:35] VITALS: BP 114/58; PULSE 80; RESP 16; TEMP 96.7; O2SAT 93
[2016-10-11 06:58] LABS: AUTOMATED NEUTROPHIL # 3.8 TH/MM3 (1.8-7.7); BASOPHIL % 0.7 % (0.0-2.0); EOSINOPHIL # 0.1 TH/MM3 (0-0.4); EOSINOPHIL % 2.1 % (0.0-4.0); HEMATOCRIT 38.5 % (35.0-46.0); HEMO FLAGS DIFF FINAL; LYMPH % 26.1 % (9.0-44.0); LYMPHOCYTE # 1.6 TH/MM3 (1.0-4.8); MEAN CELL VOLUME 91.9 FL (80.0-100.0); MEAN CORPUSCULAR HEMOGLOBIN 30.1 PG (27.0-34.0); MEAN CORPUSCULAR HGB CONC 32.8 % (32.0-36.0); MONO % 8.1 % (0.0-8.0); PLATELET COUNT 318 TH/MM3 (150-450); RED BLOOD COUNT 4.19 MIL/MM3 (4.00-5.30); RED CELL DISTRIBUTION WIDTH 13.3 % (11.6-17.2)
[2016-10-11 07:20] LABS: ALKALINE PHOSPHATASE 82 U/L (45-117); ALT (GPT) 20 U/L (10-53); ANION GAP 7 MEQ/L (5-15); AST (GOT) 14 U/L (15-37); BLOOD UREA NITROGEN 12 MG/DL (7-18); CHLORIDE 110 MEQ/L (98-107); GLOMERULAR FILTRATION RATE 96 ML/MIN (>89); POTASSIUM 5.4 MEQ/L (3.5-5.1); SODIUM (NA) 147 MEQ/L (136-145); TOTAL BILIRUBIN ADULT 0.3 MG/DL (0.2-1.0)
[2016-10-11 07:59] VITALS: BP 128/72; PULSE 79; RESP 20; TEMP 97; O2SAT 92
[2016-10-11] MEDS: DONEPEZIL HCL 5 MG TAB PO SCH (08:55)
[2016-10-11] MEDS: DOCUSATE SODIUM 100 MG CAP PO SCH (08:56)
[2016-10-11] MEDS: IBUPROFEN 600 MG TAB PO SCH (08:56)
[2016-10-11] MEDS: FLUoxetine HCL 10 MG CAP PO SCH (08:56)
[2016-10-11] MEDS: MEMANTINE HCL 10 MG TAB PO SCH (08:56)
[2016-10-11] MEDS: PANTOPRAZOLE SOD 20 MG DELAYED RELEASE TAB PO SCH (08:57)
[2016-10-11] MEDS: ATORVASTATIN 10 MG TAB PO SCH (08:57)
[2016-10-11] MEDS: ASPIRIN EC 325 MG TABEC PO SCH (08:57)
[2016-10-11] MEDS: SODIUM CHLORIDE 0.9% FLUSH 10 ML FLUSH IV FLUSH SCH (09:00)
[2016-10-11] MEDS: HEPARIN SODIUM - SQ 10,000 UNITS/ML VIAL SQ SCH (09:01)
--- NOTE | 2016-10-11 09:30 | HHI.PR ---
Subjective History of Present Illness Patient confused Low potassium resolved. Review of Systems Constitutional Constitutional Remarks Review of system Unable to obtain because of dementia. Vitals/Results Intake & Output 10/10/16 10/10/16 10/11/16 15:00 23:00 07:00 Intake Total 330 ml 300 ml Balance 330 ml 300 ml Intake Oral 330 ml 300 ml # Voids 2 2 3 Vital Signs Vital Signs Date Time Temp Pulse Resp B/P Pulse Ox O2 Delivery O2 Flow Rate FiO2 10/11/16 07:59 97.0 79 20 128/72 92 10/11/16 00:35 96.7 80 16 114/58 93 10/11/16 00:06 18 10/10/16 20:33 98.0 96 12 141/71 92 10/10/16 16:00 98.0 73 20 121/59 90 10/10/16 12:00 99.0 85 20 125/61 92 CBC/BMP: 10/11/16 0600 10/11/16 0600 Lab Results Laboratory Tests Test 10/11/16 06:00 White Blood Count 6.0 TH/MM3 Red Blood Count 4.19 MIL/MM3 Hemoglobin 12.6 GM/DL Hematocrit 38.5 % Mean Corpuscular Volume 91.9 FL Mean Corpuscular Hemoglobin 30.1 PG Mean Corpuscular Hemoglobin 32.8 % Concent Red Cell Distribution Width 13.3 % Platelet Count 318 TH/MM3 Mean Platelet Volume 7.7 FL Neutrophils (%) (Auto) 63.0 % Lymphocytes (%) (Auto) 26.1 % Monocytes (%) (Auto) 8.1 % Eosinophils (%) (Auto) 2.1 % Basophils (%) (Auto) 0.7 % Neutrophils # (Auto) 3.8 TH/MM3 Lymphocytes # (Auto) 1.6 TH/MM3 Monocytes # (Auto) 0.5 TH/MM3 Eosinophils # (Auto) 0.1 TH/MM3 Basophils # (Auto) 0.0 TH/MM3 CBC Comment DIFF FINAL Differential Comment Sodium Level 147 MEQ/L Potassium Level 5.4 MEQ/L Chloride Level 110 MEQ/L Carbon Dioxide Level 30.0 MEQ/L Anion Gap 7 MEQ/L Blood Urea Nitrogen 12 MG/DL Creatinine 0.61 MG/DL Estimat Glomerular Filtration 96 ML/MIN Rate Random Glucose 99 MG/DL Calcium Level 8.7 MG/DL Total Bilirubin 0.3 MG/DL Aspartate Amino Transf 14 U/L (AST/SGOT) Alanine Aminotransferase 20 U/L (ALT/SGPT) Alkaline Phosphatase 82 U/L Total Protein 6.4 GM/DL Albumin 3.3 GM/DL Physical Exam General General Appearance: No Acute Distress, Comfortable Eyes Eye Exam: Pupils Equal, Pupils Reactive, Sclera White, Extraocular Movement Intact Throat Throat Exam: Oral Mucosa [place] & Moist, Oral Pharynx Normal Neck Neck Exam: Neck Supple, Trachea Midline Pulmonary Resp Exam: Clear Bilaterally, Breath Sounds Equal Cardiology CV Exam: Regular, Normal Sinus Rhythm Gastrointestinal/Abdomen GI Exam: Soft, Non-Tender, Bowel Sounds Present Musculoskeletal MS Exam: Normal Gait, Normal Tone Integumentary Skin Exam: Clear, Warm, Dry, Intact Extremeties Extremities Exam: No Edema Neurologic Neuro Exam: Alert, Awake Neuro Remarks confused and demented. VTE Prophylaxis VTE Prophylaxis Meds: Heparin PUD Prophylasis PUD Prophylaxis: Protonix Assessment/Plan Assessment/Plan ASSESSMENT/PLAN 1. This is 76-year-old female who came to the ER diagnosed with altered mental status with dementia. A CT brain does not show any thing acute. The patient needs placement, [facility] Children [facility] Families is involved. A lining caser is also working on it. 2. Hypokalemia on replaced potassium and checked magnesium level 3. History of hyperlipidemia. Continue home medications. 4. History of anxiety. Continue home medication. 5. History of arthritis. Continue home medications. 6. History of dementia. Continue home medication. 7. Deep venous thrombosis prophylaxis heparin 5000 units subcutaneous twice a day. 8. GI prophylaxis Protonix 40 mg p.o. daily. 9. Agitation on Haldol and Ativan...resolved. Ok to DC home today. f/u with PCP 1 Week. Kip Verduzco MD October 11, 2016 09:30 Kip Verduzco MD October 11, 2016 09:30
[2016-10-11 12:00] VITALS: BP 139/60; PULSE 85; RESP 20; TEMP 97.8; O2SAT 97
[2016-10-11 16:00] VITALS: BP 150/69; PULSE 95; RESP 20; TEMP 98.2; O2SAT 97
--- NOTE | 2016-10-12 08:28 | MD ---
cc: KIP LOUISE MD ADMISSION DATE: 10/09/2016 DISCHARGE DATE: 10/11/2016 Okay to discharge the patient home with son. CONDITION AT THE TIME OF DISCHARGE Satisfactory. ACTIVITY As tolerated. DIET Cardiac diet. ALLERGIES NO KNOWN DRUG ALLERGIES. MEDICATIONS Include: 1. Amlodipine 10 mg p.o. daily. 2. Aspirin 325 mg p.o. daily. 3. Lipitor 10 mg p.o. daily. 4. Colace 100 mg p.o. daily. 5. Aricept 5 mg p.o. daily. 6. Fluoxetine 10 mg p.o. daily. 7. Ibuprofen 200 mg p.o. twice a day and 600 mg twice a day. 8. Namenda XR 28 mg p.o. daily. 9. Omeprazole 10 mg p.o. daily. The patient advised to follow up the patient and son advised to follow with PCP in 1 week. ADMISSION DIAGNOSIS 1. Altered mental status and dementia. The patient is not able to take care of herself. CT brain does not show anything acute. DCF is involved and the patient needs placement. The patient's son came on 10/11/2016 and said he would live with the parents. 2. Hypokalemia which was replaced. 3. History of hyperlipidemia, anxiety, arthritis, dementia. 4. Agitation, during hospital stay, the patient was given Haldol. HOSPITAL COURSE This is a 76-year-old female admitted with altered mental status and dementia. She lives with her who also has dementia so DCF is involved and the patient needs to stay in supervision. The patient's son came on 10/11/2016 and said he will stay with the parents and the patient was discharged home in satisfactory condition. Further details in the medical record. Kip Louise MD EA/PETE /12:07 PM /8:28 AM
[2016-10-12 14:10] LABS: RAPID PLASMA REAGIN SCREEN NON-REACTIVE (NON-REACTVE)
[2016-10-12 14:46] LABS: ANA SCREEN NEG (NEG)
== END 2016-10-11 18:10 | disposition home or self-care (01) | DRG 884 ==
LOC: PHED 21:46 → PHEDA 23:45 → PH3A 10-09 00:38 → OBSVTOIN 10-09 12:01
PROVIDERS: ADMIT Family Medicine; ATTEND Family Medicine
DX: F03.91 Unspecified dementia, unspecified severity, with behavioral disturbance (principal); E78.5 Hyperlipidemia, unspecified; R45.1 Restlessness and agitation; E87.6 Hypokalemia; M19.90 Unspecified osteoarthritis, unspecified site; F41.9 Anxiety disorder, unspecified
CPT/HCPCS: 70450; 80048; 80053; 81001; 82140; 82607; 82746; 83735; 84100; 84443; 85025; 86038; 86592; 93005; J1644; J2060

== ENCOUNTER 2017-07-19 14:12 | Emergency (ER) | payer MEDICARE ==
[~2017-07-19] VITALS: Ht 157.5 cm; Wt 61.5 kg
[~2017-07-19 14:12] MED LIST changes: -ONDA1TAB16; +ONDA4TAB15; +PRED20 PO
[2017-07-19 14:16] VITALS: BP 176/77; PULSE 82; RESP 18; TEMP 98.3; O2SAT 94
[2017-07-19] MEDS ORDERED: MEMA28CA PO (15:26)
[2017-07-19] MEDS ORDERED: OMEP20TA93 PO (15:26)
[2017-07-19] MEDS ORDERED: TRAZ50TA12 PO (15:26)
[2017-07-19] MEDS ORDERED: DOCU100C15 PO (15:26)
[2017-07-19] MEDS ORDERED: DONE10TA7 PO (15:26)
[2017-07-19] MEDS ORDERED: SERT-132 PO (15:26)
[2017-07-19] MEDS ORDERED: AMLO10TA2 PO (15:28)
[2017-07-19] MEDS ORDERED: ASPI-183 PO (15:28)
[2017-07-19] MEDS ORDERED: ATOR10TA15 PO (15:28)
[2017-07-19] MEDS ORDERED: SODIUM CHLORIDE 0.9% FLUSH 10 ML FLUSH IV FLUSH PRN (16:00)
[2017-07-19] MEDS ORDERED: ONDANSETRON HCL 4 MG/2 ML VIAL IVP ONE (16:00)
[2017-07-19] MEDS ORDERED: MORPHINE SULFATE 4 MG/ML INJ IV PUSH ONE (16:00)
[2017-07-19 16:27] LABS: AUTOMATED NEUTROPHIL # 9.7 TH/MM3 (1.8-7.7); BASOPHIL # 0.3 TH/MM3 (0-0.2); BASOPHIL % 2.3 % (0.0-2.0); EOSINOPHIL # 0.1 TH/MM3 (0-0.4); EOSINOPHIL % 0.9 % (0.0-4.0); HEMATOCRIT 40.4 % (35.0-46.0); HEMOGLOBIN 13.9 GM/DL (11.6-15.3); LYMPH % 11.5 % (9.0-44.0); LYMPHOCYTE # 1.5 TH/MM3 (1.0-4.8); MEAN CELL VOLUME 87.8 FL (80.0-100.0); MEAN CORPUSCULAR HEMOGLOBIN 30.2 PG (27.0-34.0); MEAN CORPUSCULAR HGB CONC 34.3 % (32.0-36.0); MEAN PLATELET VOLUME 7.8 FL (7.0-11.0); MONO % 8.2 % (0.0-8.0); NEUT % 77.1 % (16.0-70.0); PLATELET COUNT 328 TH/MM3 (150-450); RED CELL DISTRIBUTION WIDTH 13.7 % (11.6-17.2); WHITE BLOOD COUNT 12.6 TH/MM3 (4.0-11.0)
[2017-07-19 16:29] LABS: CHLORIDE 101 MEQ/L (98-107); SODIUM (NA) 137 MEQ/L (136-145)
[2017-07-19 16:32] LABS: CALCIUM 8.9 MG/DL (8.5-10.1)
[2017-07-19 16:33] LABS: ALBUMIN 3.7 GM/DL (3.4-5.0); BICARBONATE 30.1 MEQ/L (21.0-32.0); BLOOD UREA NITROGEN 12 MG/DL (7-18); GLUCOSE,RANDOM 117 MG/DL (74-106); PROTHROMBIN TIME - PATIENT 9.7 SEC (9.8-11.6)
[2017-07-19 16:36] LABS: ALT (GPT) 20 U/L (10-53); AST (GOT) 19 U/L (15-37); CREATININE 0.64 MG/DL (0.50-1.00); GLOMERULAR FILTRATION RATE 90 ML/MIN (>89)
[2017-07-19 16:37] LABS: TOTAL BILIRUBIN ADULT 0.1 MG/DL (0.2-1.0)
[2017-07-19 16:38] LABS: TOTAL PROTEIN 7.9 GM/DL (6.4-8.2)
[2017-07-19 16:39] LABS: ALKALINE PHOSPHATASE 164 U/L (45-117)
[2017-07-19] MEDS ORDERED: IOHEXOL 350 MG/ML 10 ML VIAL (for RAD DIAG) IVCONTRAST ONE (17:15)
--- NOTE | 2017-07-19 17:52 | RADRPT ---
EXAM DATE/TIME: 07/19/2017 17:10 [facility] COMPARISON: CT ABDOMEN & PELVIS W CONTRAST, October 16, 2015, 17:39. INDICATIONS : Right upper quadrant pain. IV CONTRAST: 90 cc Omnipaque 350 (iohexol) IV ORAL CONTRAST: No oral contrast ingested. RADIATION DOSE: 9.64 CTDIvol (mGy) MEDICAL HISTORY : Hypertension. Hypercholesterolemia. Gastroesophageal reflux disease. SURGICAL HISTORY : None. ENCOUNTER: Initial ACUITY: 1 week PAIN SCALE: 3/10 LOCATION: Right upper quadrant TECHNIQUE: Volumetric scanning of the abdomen and pelvis was performed. Using automated exposure control and ad justment of the mA and/or kV according to patient size, radiation dose was kept as low as reasonably achievable to obtain optimal diagnostic quality images. DICOM format image data is available electro nically for review and comparison. FINDINGS: The lung base is are clear. Calcified granulomas and hilar lymph nodes are noted on the right. Large 7.4 cm cyst present dome of the liver. Gallbladder is unremarkable There is no ductal dilatation Pancreas, adrenals and kidneys unremarkable 3.4 cm cyst right kidney Normal left kidney Extensive vascular calcifications There is no inflammatory change in abdomen. There is retroperitoneal adenopathy In the pelvis, diverticuli are present in the sigmoid colon. Bladder and adnexal regions are unremar kable There is no inguinal adenopathy. There is no hernia. CONCLUSION: Large apparent hepatic cyst smaller in the interval Right renal cyst I do not see many other etiology for the abdominal pain. Castillo Leon MD FACR on July 19, 2017 at 17:46 Board Certified Radiologist. This report was verified electronically.
--- NOTE | 2017-07-19 18:17 | PD ---
HPI Chief Complaint: Musculoskeletal Complaint Time Seen by Provider: 15:48 Travel History International Travel<30 days: No Contact w/Intl Traveler<30days: No Traveled to known affect area: No History of Present Illness HPI 76-year-old female presents to the ED for evaluation of right upper quadrant abdominal pain 1 week. Rated 8/10, worsened by deep breathing and certain movements. Pain radiates to the back. Patient denies fever, chills, cough, shortness of breath, nausea, vomiting changes in bowel habits, dysuria. Patient lives in an SENIOR LIVING secondary to Alzheimer's. Son is at bedside and helps to provide the history. PFSH Past Medical History Hx Anticoagulant Therapy: Yes Alzheimer's Disease: Yes Arthritis: No Anxiety: Yes Heart Rhythm Problems: No Cancer: No Cardiac Catheterization: No High Cholesterol: Yes Congestive Heart Failure: No Dementia: Yes Diminished Hearing: No Endocrine: No Gastrointestinal Disorders: No GERD: Yes Genitourinary: No Heparin Induced Thrombocytopen: No Hypertension: Yes Immune Disorder: No Implanted Vascular Access Dvce: No Musculoskeletal: No Neurologic: No Reproductive: No Immunizations Current: No Tetanus Vaccination: < 5 Years ?: Not Menopausal: Yes Past Surgical History Coronary Artery Bypass Graft: No Tonsillectomy: Yes Other Surgery: Yes (tonsilectomy) Family History Family Myocardial Infarction: Yes (mom and dad) Social History Alcohol Use: No Tobacco Use: No (smoked cigs at age 17 only) Substance Use: No Allergies-Medications (Allergen,Severity, Reaction): Coded Allergies: No Known Allergies (Unverified Adverse Reaction, Unknown, 07/19/17) Patient and her state she is not allergic to aspirin. Reported Meds & Prescriptions Reported Meds & Active Scripts Active [place] (Hydrocodone-Acetaminophen) 5 Mg-325 Mg Tab 1 Tab PO Q6H PRN Tylenol (Acetaminophen) 325 Mg Tab 650 Mg PO Q4H PRN Reported Amlodipine (Amlodipine Besylate) 10 Mg Tab 10 Mg PO DAILY Atorvastatin (Atorvastatin Calcium) 10 Mg Tab 10 Mg PO HS Aspirin 325 Mg Tab 325 Mg PO DAILY Trazodone (Trazodone HCl) 50 Mg Tab 50 Mg PO BID Sertraline (Sertraline HCl) 50 Mg Tab 50 Mg PO DAILY Omeprazole 20 Mg Tab 20 Mg PO DAILY Namenda Xr (Memantine) 28 Mg Caper 28 Mg PO DAILY Donepezil 10 Mg Tab 10 Mg PO HS Docusate Sodium 100 Mg Cap 100 Mg PO DAILY PRN Review of Systems Except as stated in HPI: all other systems reviewed are Neg Physical Exam Narrative GENERAL: Well-nourished, well-developed nontoxic appearing white female in no acute distress. SKIN: Focused skin assessment warm/dry. HEAD: Normocephalic. EYES: No scleral icterus. No injection or drainage. NECK: Supple, trachea midline. No JVD or lymphadenopathy. CARDIOVASCULAR: Regular rate and rhythm without murmurs, gallops, or rubs. RESPIRATORY: Breath sounds clear and equal bilaterally. No accessory muscle use. GASTROINTESTINAL: Abdomen soft, nondistended. Tender to palpation in the right upper quadrant and right flank. No palpable mass. Active bowel sounds. MUSCULOSKELETAL: No cyanosis, or edema. BACK: Nontender without obvious deformity. No CVA tenderness. Data Data Last Documented VS Vital Signs Date Time Temp Pulse Resp B/P (MAP) Pulse Ox O2 Delivery O2 Flow Rate FiO2 07/19/17 19:02 77 20 136/49 (78) 94 07/19/17 14:16 98.3 Orders Orders Complete Blood Count With Diff (07/19/17 15:56) Comprehensive Metabolic Panel (07/19/17 15:56) Lipase (07/19/17 15:56) Lactic Acid (07/19/17 15:56) Prothrombin Time / Inr (Pt) (07/19/17 15:56) Act Partial Throm Time (Ptt) (07/19/17 15:56) Ct Abd/Pel W Iv Contrast(Rout) (07/19/17 15:56) Iv Access Insert/Monitor (07/19/17 15:56) Ecg Monitoring (07/19/17 15:56) Oximetry (07/19/17 15:56) Morphine Inj (Morphine Inj) (07/19/17 16:00) Ondansetron Inj (Zofran Inj) (07/19/17 16:00) Sodium Chloride 0.9% Flush (Ns Flush) (07/19/17 16:00) Iohexol 350 Inj (Omnipaque 350 Inj) (07/19/17 17:15) Ed Discharge Order (07/19/17 18:53) Labs Laboratory Tests Test 07/19/17 16:10 White Blood Count 12.6 TH/MM3 Red Blood Count 4.60 MIL/MM3 Hemoglobin 13.9 GM/DL Hematocrit 40.4 % Mean Corpuscular Volume 87.8 FL Mean Corpuscular Hemoglobin 30.2 PG Mean Corpuscular Hemoglobin Concent 34.3 % Red Cell Distribution Width 13.7 % Platelet Count 328 TH/MM3 Mean Platelet Volume 7.8 FL Neutrophils (%) (Auto) 77.1 % Lymphocytes (%) (Auto) 11.5 % Monocytes (%) (Auto) 8.2 % Eosinophils (%) (Auto) 0.9 % Basophils (%) (Auto) 2.3 % Neutrophils # (Auto) 9.7 TH/MM3 Lymphocytes # (Auto) 1.5 TH/MM3 Monocytes # (Auto) 1.0 TH/MM3 Eosinophils # (Auto) 0.1 TH/MM3 Basophils # (Auto) 0.3 TH/MM3 CBC Comment DIFF FINAL Differential Comment Prothrombin Time 9.7 SEC Prothromb Time International Ratio 1.0 RATIO Activated Partial Thromboplast Time 23.6 SEC Blood Urea Nitrogen 12 MG/DL Creatinine 0.64 MG/DL Random Glucose 117 MG/DL Total Protein 7.9 GM/DL Albumin 3.7 GM/DL Calcium Level 8.9 MG/DL Alkaline Phosphatase 164 U/L Aspartate Amino Transf (AST/SGOT) 19 U/L Alanine Aminotransferase (ALT/SGPT) 20 U/L Total Bilirubin 0.1 MG/DL Sodium Level 137 MEQ/L Potassium Level 3.6 MEQ/L Chloride Level 101 MEQ/L Carbon Dioxide Level 30.1 MEQ/L Anion Gap 6 MEQ/L Estimat Glomerular Filtration Rate 90 ML/MIN Lactic Acid Level 1.2 mmol/L Lipase 187 U/L [facility] Medical Decision Making Medical Screen Exam Complete: Yes Emergency Medical Condition: Yes Differential Diagnosis Biliary colic versus cholecystitis versus cholelithiasis versus GERD versus other Narrative Course 76-year-old female with PMH of Alzheimer presents to the ED for evaluation of right upper quadrant abdominal pain 1 week. Rated 8/10, worsened by deep breathing and certain movements. Pain radiates to the back. Patient denies fever, chills, cough, shortness of breath, nausea, vomiting changes in bowel habits, dysuria. Patient lives in an SENIOR LIVING. Son is at bedside and helps to provide the history. Vitals reviewed. Physical exam reveals tenderness to palpation in the right upper quadrant and right flank. IV was established. The patient was administered 2 mg morphine, 4 mg Zofran IV. CBC: WBC 12.6, left shift. Coags: INR 1.0. CMP: Unremarkable. Lactic acid 1.2. Lipase 187. CT abdomen and pelvis: Large hepatic cyst per radiology read. I discussed the results of the workup with Dr. Cesar. He recommends ultrasound-guided needle aspiration on outpatient basis. I discussed this plan with the patient and her family were agreeable. Order was faxed to the ultrasound sugar reprocess operator head.Patient's family was provided with a brief course of pain medications and given detailed instructions on follow-up with the ultrasound clinic. They indicated understanding of instructions and agreeable to the care plan. The patient is stable and discharged home. Diagnosis Primary Impression: Hepatic cyst Additional Instructions: Call the ULTRASOUND sugar reprocess operator head tomorrow morning to confirm follow up appointment. Take Tylenol as needed for pain 1-6. Take [place] as needed for pain greater than 6. Use caution with [place] as this can cause drowsiness. Follow up as discussed. Return to the ED for any urgent/ emergent medical condition. Scripts Hydrocodone-Acetaminophen ([place]) 5 Mg-325 Mg Tab 1 TAB PO Q6H Y for PAIN GREATER THAN 6, #10 TAB 0 Refills Prov: Martell Cesar MD 07/19/17 Acetaminophen (Tylenol) 325 Mg Tab 650 MG PO Q4H Y for PAIN SCALE 1 TO 6, #15 TAB 0 Refills Prov: Martell Cesar MD 07/19/17 Disposition: 01 DISCHARGE HOME Condition: Stable Nieves Guerin Jul 19, 2017 18:17
[2017-07-19] MEDS ORDERED: NORC5TAB PO ×2 (18:37→18:39)
[2017-07-19] MEDS ORDERED: TYLE325T PO ×2 (18:37→18:39)
[2017-07-19 19:02] VITALS: BP 136/49
== END 2017-07-19 19:04 | disposition home or self-care (01) ==
LOC: PHED 14:12 → PHEFT 19:04
DX: K76.89 Other specified diseases of liver (principal); G30.9 Alzheimer's disease, unspecified; F02.80 Dementia in other diseases classified elsewhere, unspecified severity, without behavioral disturbance, psychotic disturbance, mood disturbance, and anxiety; I10 Essential (primary) hypertension; E78.00 Pure hypercholesterolemia, unspecified; K21.9 Gastro-esophageal reflux disease without esophagitis; F41.9 Anxiety disorder, unspecified; Z79.01 Long term (current) use of anticoagulants
CPT/HCPCS: 74177; 80053; 83605; 83690; 85025; 85610; 85730; 96374; 96375; 99284; J2270; J2405; Q9967

== ENCOUNTER 2017-07-26 11:44 | Day surgery (SDC) | payer MEDICARE ==
[~2017-07-26 11:44] MED LIST changes: +ASPI-183 PO; -ASPI325T33 PO; -COLA100C3 PO; +DOCU100C15 PO; +DONE10TA7 PO; -DONE5TAB7 PO; -FD GUARD; -FLUO10CA5 PO; -IBUP-232 PO; -MIDO200C; +NORC5TAB PO; -OMEP10CA PO; +OMEP20TA93 PO; -ONDA4TAB15; -PRED20 PO; +SERT-132 PO; +TRAZ50TA12 PO; +TYLE325T PO
[2017-07-26] MEDS ORDERED: LIDOCAINE HCL 1% 20 ML VIAL ONE ×2 (14:26→14:27)
[2017-07-26 14:28] VITALS: BP 158/64; PULSE 75; RESP 18; TEMP 98.4; O2SAT 93
[2017-07-26 14:45] VITALS: BP 152/62; PULSE 78; RESP 18; O2SAT 93
--- NOTE | 2017-07-26 14:50 | RADRPT ---
EXAM DATE/TIME: 07/26/2017 14:20 [facility] COMPARISON: CT ABDOMEN & PELVIS W CONTRAST, July 19, 2017, 17:10. BARIUM SWALLOW, December 12, 2015, 11:54. INDICATIONS : Liver aspiration and biopsy. MEDICAL HISTORY : Hypertension. Hypercholesterolemia. Gastroesophageal reflux disease SURGICAL HISTORY : None. ENCOUNTER: Initial ACUITY: 1 day PAIN SCORE: 2/10 LOCATION: [place] FINDINGS: The heart is normal in size. There mild atelectatic changes in the lung bases. No pneumothorax is see n following drainage of the patient's hepatic cyst. The osseous structures are intact. CONCLUSION: 1. No pneumothorax identified following ultrasound guided aspiration of a large hepatic cyst. aKpil Leon MD on July 26, 2017 at 14:47 Board Certified Radiologist. This report was verified electronically.
[2017-07-26 15:00] VITALS: BP 166/66; PULSE 79; RESP 18; O2SAT 94
--- NOTE | 2017-07-26 15:00 | RADRPT ---
EXAM DATE/TIME: 07/26/2017 12:35 [facility] COMPARISON: No previous studies available for comparison. EXTERNAL COMPARISON: [facility], MRA ABDOMEN, Oct 29 2015, US ABDOMEN COMPLETE, October 21, 2015, January 11, 2015. INDICATIONS : Hepatic cyst. MEDICAL HISTORY : Dementia. Alzheimers. Hypercholesterolemia. Syncope. HTN. GERD. Anxiety. SURGICAL HISTORY : Tonsillectomy. ENCOUNTER: Initial ACUITY: 7 - 11 months PAIN SCORE: 4/10 LOCATION: Right upper quadrant FLUID: Total volume of 180 cc of cloudy, yellow fluid was removed. Fluid was sent to lab for ordered studies. Post procedure scanning reveals no hematoma or other complication. TECHNIQUE: 1. Ultrasound guidance for needle aspiration. 2. Aspiration. The risks, benefits and alternatives to the procedure were explained to the patient enters signed. Ve rbal and written consent was obtained. The site was prepped in sterile fashion. Full sterile techni que was used, including cap, mask, sterile gloves and gown and a large sterile sheet. Hand hygiene a nd 2% chlorhexidine and/or betadine/alcohol prep was utilized per protocol for cutaneous antisepsis. The skin and subcutaneous tissues were infiltrated with local anesthetic solution. Sterile gel and sterile probe cover were utilized for ultrasound guidance. With the patient on the ultrasound table, ultrasound imaging was used to select the most appropriate approach for aspiration. A dermatotomy was made with an 11 blade scalpel. A catheter was introduced into the cavity and fluid was collected. CONCLUSION: Uncomplicated ultrasound guided aspiration. A total of approximately 180 cc of cloudy, straw-colored fluid was removed. Kapil Leon MD on July 26, 2017 at 14:57 Board Certified Radiologist. This report was verified electronically.
== END 2017-07-26 15:10 | disposition home or self-care (01) ==
LOC: HRAD 11:44 → HRIP 11:51 → HRAD 15:10
PROVIDERS: ATTEND Physician Assistant
DX: K76.89 Other specified diseases of liver (principal); I10 Essential (primary) hypertension; K21.9 Gastro-esophageal reflux disease without esophagitis; E78.00 Pure hypercholesterolemia, unspecified; F41.9 Anxiety disorder, unspecified; F02.80 Dementia in other diseases classified elsewhere, unspecified severity, without behavioral disturbance, psychotic disturbance, mood disturbance, and anxiety; G30.9 Alzheimer's disease, unspecified
CPT/HCPCS: 10160; 71045; 76942; 87070; 87102; 87205; 87206